=== PATIENT | female | born 1990 | race Two or more races ===

== ENCOUNTER 2016-06-02 22:47 | Emergency (ER) | payer OTHER ==
[2016-06-02] MEDS ORDERED: IOPAMIDOL 370 (76%) 100 ML VIAL IV ONE (22:48)
[2016-06-03 03:41] LABS: PH,URINE 6.5 (5.0-8.0); SPECIFIC GRAVITY 1.015 (1.001-1.030); URINE BILIRUBIN NEGATIVE (NEGATIVE); URINE BLOOD 1+ (NEGATIVE); URINE GLUCOSE (UA) NEGATIVE (NEGATIVE); URINE LEUKOCYTE ESTERASE NEGATIVE (NEGATIVE); URINE NITRITE NEGATIVE (NEGATIVE); URINE PROTEIN NEGATIVE (NEGATIVE); URINE UROBILINOGEN NORMAL (0-1 mg/dl)
[2016-06-03 03:46] LABS: HCG,QUALITATIVE URINE NEGATIVE
[2016-06-03 03:47] LABS: URINE APPEARANCE CLEAR; URINE COLOR YELLOW
[2016-06-03] MEDS ORDERED: OXYCODONE HCL 5 MG TABLET ONE (04:48)
--- NOTE | 2016-06-03 08:09 | CT ---
CTA CAROTID W/ POST PROCESS COMPARISON: None. HISTORY: 25-year-old female. At 1300 she picked up her daughter and felt a "pop" in her left side of the neck. She states that she has been unable to move her head since then and the pain has been increasing. Numbness from her neck down her left arm and vision changes. TECHNIQUE: [employer] [facility] [address] scanner. Intravenous injection 80 mL [id number]. Contrast-enhanced images obtained from the aortic arch to the skull base. Under concurrent supervision and interpretation, requiring a separate 3-D workstation, the mining engineering technologist created 3-D CT angiograms. An automated dose reduction technique was used to minimize patient radiation dose. Dose information: CTDIvol (mGy): 17.40 DLP(mGycm): 527.70 FINDINGS: Aortic arch: Normal. Brachiocephalic artery: Normal. Right common carotid artery: Normal. Right internal carotid artery: Normal. Right external carotid artery: Normal. Right vertebral artery: Normal. Right subclavian artery: Normal. Left subclavian artery: Normal. Left common carotid artery: Normal. Left internal carotid artery: Normal. Left external carotid artery: Normal. Left vertebral artery: Normal. Internal jugular veins: Normal. Airway: Normal Lymph nodes: Normal Salivary glands: Normal Thyroid gland: Normal. Muscles: Normal. Spine: Kyphotic curvature. Superior mediastinum: Normal Lung apices: Normal. IMPRESSION: 1. Normal CT angiogram of the neck. No dissection. 2. Kyphotic curvature of the cervical spine, possibly caused by muscle spasm. Preliminary report by [facility] radiologist Roosevelt Desai MD 06/03/2016 at 04:45
== END 2016-06-03 05:31 | disposition home or self-care (01) ==
LOC: ED 22:47
DX: M54.2 Cervicalgia (principal)
CPT/HCPCS: 81025; 81001; 70498; 99284; 99283; A9270; Q9967